=== PATIENT | male | born 2000 | race Caucasian/White ===

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

== ENCOUNTER 2021-06-02 17:30 | Emergency (ER) | payer OTHER ==
--- NOTE | 2021-06-02 18:03 | ED Physician Documentation ---
PD HPI CHEST PAIN - Stated complaint Stated Complaint: CP - Chief complaint Chief Complaint: Cardiac - History obtained from History obtained from: Patient - History of Present Illness Timing - onset: How many weeks ago (2) Timing - duration: Weeks (2) Pain level max: 5 Pain level now: 5 Quality: Sharp Radiation: No: Jaw, Neck, Back, Abdominal, Left upper extremity, Right upper extremity Associated symptoms: No: Shortness of air, Diaphoresis, Nausea, Vomiting, Feeling faint / dizzy, General Weakness, Palpitations, Cough Similar symptoms before: Has not had sx before Recently seen: Not recently seen - Additional information Additional information: Patient is a 20-year-old male who complains of sharp central chest pain for the past 2 weeks. He states it has been constant. Worse with moving, nothing makes it better. Has not taken anything for the pain. Nonradiating. Has not tried Motrin, Tylenol, Maalox, antacids, etc. No recent surgeries. No recent travel. No recent illnesses. No family history of young cardiac disease. Review of Systems Ten Systems: 10 systems reviewed and negative Constitutional: denies: Fever, Chills GI: denies: Nausea, Vomiting PD PAST MEDICAL HISTORY - Past Medical History Cardiovascular: None Respiratory: None Neuro: None Endocrine/Autoimmune: None GI: None : None HEENT: None Psych: None Musculoskeletal: None, Other Derm: None - Past Surgical History Past Surgical History: Yes General: Appendectomy - Present Medications Home Medications: Ambulatory Orders Medication Instructions Recorded Confirmed Ibuprofen [Motrin] 800 mg PO Q8H PRN #30 tablet 06/02/21 - Allergies Allergies/Adverse Reactions: Allergies Allergy/AdvReac Type Severity Reaction Status Date / Time No Known Drug Allergies Allergy Verified 06/02/21 17:42 - Social History Does the pt smoke?: No Smoking Status: Never smoker Does the pt drink ETOH?: No Does the pt have substance abuse?: No - Immunizations Immunizations are current?: Yes - POLST Patient has POLST: No PD ED PE NORMAL - Vitals Vital signs reviewed: Yes - General General: Alert and oriented X 3, No acute distress, Well developed/nourished - HEENT HEENT: PERRL, Moist mucous membranes - Neck Neck: Supple, no meningeal sign, No JVD - Cardiac Cardiac: RRR, No murmur, Strong equal pulses - Respiratory Respiratory: No respiratory distress, Clear bilaterally - Abdomen Abdomen: Soft, Non tender, Non distended - Derm Derm: Warm and dry - Extremities Extremities: No edema, No calf tenderness / cord - Neuro Neuro: Alert and oriented X 3 - Psych Psych: Normal mood, Normal affect - Free text exam Free text exam: Tender to palpation across the anterior chest wall. Tenderness over the costochondral cartilage. Reproduces his pain. No crepitus. Results - Vitals Vitals: Vital Signs - 24 hr 06/02/21 06/02/21 17:32 19:24 Temperature 36.3 C L 36.6 C Heart Rate 86 89 Respiratory 16 16 Rate Blood Pressure 142/85 H 134/74 H O2 Saturation 98 97 Oxygen O2 Source Room air - EKG (time done) 1749 Rate: Rate (enter#) (87) Rhythm: NSR [place]: Normal Intervals: Normal [place] QRS: Normal Ischemia: Normal ST segments - Rads (name of study) Chest x-ray Radiology: Prelim report reviewed, EMP read contemporaneously, See rad report (No acute abnormality) PD MEDICAL DECISION MAKING - ED course Complexity details: reviewed results, re-evaluated patient, considered differential (No ST elevation [place], no aortic dissection, no PE, no tension pneumothorax, no aortic aneurysm), d/w patient, d/w family ED course: Patient with what appears to be costochondritis. Given Motrin here. No change with GI cocktail. Pain is reproducible with palpation. No acute findings on EKG or chest x-ray. No evidence of pericarditis or myocarditis. No young cardiac history in the family. No risk factors for PE. Patient and family counseled regarding signs and symptoms for which I believe and urgent re- evaluation would be necessary. Patient with good understanding of and agreement to plan and is comfortable going home at this time This document was made in part using voice recognition software. While efforts are made to proofread this document, sound alike and grammatical errors may occur. Departure - Departure Disposition: 01 Home, Self Care Clinical Impression: Costochondritis Chest pain Qualifiers: Chest pain type: unspecified Qualified Code(s): R07.9 - Chest pain, unspecified Condition: Good Instructions: ED Chest Pain Costochondritis Follow-Up: your,doctor in 1 week [Other] Prescriptions: Ibuprofen [Motrin] 800 mg PO Q8H PRN #30 tablet PRN Reason: PAIN &/OR FEVER Comments: Take the motrin as prescribed. This should improve over the next week. Return if you worsen. Discharge Date/Time: 06/02/21 19:28
--- NOTE | 2021-06-02 18:33 | XRAY Report ---
PROCEDURE: Chest 2 View X-Ray INDICATIONS: chest pain TECHNIQUE: 2 view(s) of the chest. COMPARISON: CXR 09/01/2018. FINDINGS: Surgical changes and devices: None. Lungs and pleura: No pleural effusions or pneumothorax. Lungs are clear. Mediastinum: Mediastinal contours are normal. Heart size is normal. Bones and chest wall: No suspicious bony abnormalities. Soft tissues appear unremarkable. IMPRESSION: No acute cardiopulmonary abnormality. Reviewed by: Kalin Remy MD on 06/02/2021 6:32 PM PDT Approved by: Kalin Remy MD on 06/02/2021 6:32 PM PDT Station ID: [id number]
[2021-06-02] MEDS: MAG HYDROX/AL HYDROX/SIMETH 30 ML UDC PO STA (18:36)
[2021-06-02] MEDS: SUCRALFATE 1 GM/10 ML UDC PO STA (18:37)
[2021-06-02] MEDS: IBUPROFEN 800 MG TABLET PO STA (18:37)
[2021-06-02 19:25] VITALS: BP 134/74
== END 2021-06-02 19:28 | disposition home or self-care (01) ==
LOC: ED 17:30
DX: M94.0 Chondrocostal junction syndrome [Tietze] (principal); R07.9 Chest pain, unspecified
CPT/HCPCS: 71046; 93005; 99283; 99284; A9270

== ENCOUNTER 2023-10-24 15:45 | Emergency (ER) | payer OTHER ==
[2023-10-24 15:57] VITALS: O2SAT 98
[2023-10-24 16:55] LABS: B. PARAPERTUSSIS- RESP PCR PAN NOT DETECTED; B. PERTUSSIS- RESP PCR PANEL NOT DETECTED; C. PNEUMONIAE- RESP PCR PANEL NOT DETECTED; CORONAVIRUS 229E-RESP PCR NOT DETECTED; CORONAVIRUS HKU1-RESP PCR NOT DETECTED; CORONAVIRUS NL63-RESP PCR NOT DETECTED; CORONAVIRUS OC43-RESP PCR NOT DETECTED; HUMAN METAPNEUMOVIRUS NOT DETECTED; INFLUENZA A- RESP PCR PANEL NOT DETECTED; INFLUENZA B - RESP PCR PANEL NOT DETECTED; M. PNEUMONIAE- RESP PCR PANEL NOT DETECTED; PARAINFLUENZA VIRUS 1 NOT DETECTED; PARAINFLUENZA VIRUS 2 NOT DETECTED; PARAINFLUENZA VIRUS 3 NOT DETECTED; PARAINFLUENZA VIRUS 4 NOT DETECTED; RHINOVIRUS/ENTEROVIRUS NOT DETECTED; RSV- RESP PCR PANEL DETECTED; SARS-CoV-2 -RESP PCR PANEL NOT DETECTED
--- NOTE | 2023-10-24 17:21 | ED Physician Documentation ---
History of Present Illness - Stated complaint Stated Complaint: CHEST PX/COUGH/RT HAND SWOLLEN - Chief complaint Chief Complaint: Resp - History obtained from History obtained from: Patient - Additonal information Additional information: The pt comes to the ED with CC of cough, runny nose and sore throat for the past 5 days. No fevers or GI sx. No known sick contacts. He also c/o intermittent swelling of R thenar eminence. No injury. Has some soreness when it happens. No repetitive motion. No other complaints at this time. PD PAST MEDICAL HISTORY - Past Medical History Past Medical History: Yes Cardiovascular: None Respiratory: None Neuro: None Endocrine/Autoimmune: None GI: None : None HEENT: None Psych: None Musculoskeletal: None, Other Derm: None - Past Surgical History Past Surgical History: Yes General: Appendectomy Ortho: Other - Present Medications Home Medications: Ambulatory Orders Medication Instructions Recorded Confirmed Albuterol Sulf [Ventolin Hfa 1 - 2 puffs INH Q4HR PRN #1 each 10/27/23 Inhaler] Benzonatate [Tessalon] 200 mg PO TID PRN #30 cap 10/27/23 predniSONE [Deltasone] 40 mg PO DAILY #10 tablet 10/27/23 - Allergies Allergies/Adverse Reactions: Allergies Allergy/AdvReac Type Severity Reaction Status Date / Time No Known Drug Allergies Allergy Verified 10/27/23 11:45 - Social History Does the pt smoke?: No Smoking Status: Never smoker Does the pt drink ETOH?: No Does the pt have substance abuse?: No - Immunizations Immunizations are current?: Yes - POLST Patient has POLST: No PD ED PE NORMAL - Vitals Vital signs reviewed: Yes - General General: Alert and oriented X 3, No acute distress, Well developed/nourished - HEENT HEENT: Atraumatic, PERRL, EOMI, Moist mucous membranes, Other (Mild erythema of pharynx. Tonsils symmetrical, 2+, no exudates.) - Neck Neck: Supple, no meningeal sign, No adenopathy - Cardiac Cardiac: RRR, No murmur - Respiratory Respiratory: No respiratory distress, Clear bilaterally - Abdomen Abdomen: Soft, Non tender, Non distended - Derm Derm: Warm and dry - Extremities Extremities: No deformity, Other (No tenderness or edema of R thenar eminence.) - Neuro Neuro: Alert and oriented X 3 - Psych Psych: Normal mood, Normal affect Results - Vitals Vitals: Oxygen O2 Source Room air - Labs Labs: Laboratory Tests 10/24/23 16:00 Nasal Adenovirus (PCR) NOT DETECTED Nasal B. parapertussis DNA (PCR) NOT DETECTED Nasal Coronavir 229E PCR NOT DETECTED Nasal Coronavir HKU1 PCR NOT DETECTED Nasal Coronavir NL63 PCR NOT DETECTED Nasal Coronavir OC43 PCR NOT DETECTED Nasal Enterovir/Rhinovir PCR NOT DETECTED Nasal Influenza B PCR NOT DETECTED Nasal Influenza A PCR NOT DETECTED Nasal Parainfluen 1 PCR NOT DETECTED Nasal Parainfluen 2 PCR NOT DETECTED Nasal Parainfluen 3 PCR NOT DETECTED Nasal Parainfluen 4 PCR NOT DETECTED Nasal RSV (PCR) DETECTED A Nasal B.pertussis DNA PCR NOT DETECTED Nasal C.pneumoniae (PCR) NOT DETECTED Chirag Human Metapneumo PCR NOT DETECTED Nasal M.pneumoniae (PCR) NOT DETECTED Nasal SARS-CoV-2 (PCR) NOT DETECTED - Rads (name of study) CXR Relevant Findings:: Final report received, See rad report (neg) PD Medical Decision Making - ED course Complexity details: reviewed results, re-evaluated patient, considered differential, d/w patient ED course: CXR was neg with positive RSV on resp PCR. I discussed the findings with the pt. I have also discussed that I do not know why he is having intermittent thenar eminence swelling and pain. There are no findings on exam and pt is asymptomatic today. I have encouraged him to follow up with his PCP and avoid any activities that exacerbate the sx. Departure - Departure Disposition: 01 Home, Self Care Clinical Impression: RSV infection Condition: Stable Instructions: ED Viral Syndrome Comments: Your chest x-ray looks good. Your viral swab is positive for RSV, one of the many viruses that cause upper respiratory symptoms. In adults, this usually causes a bad cold but does not go beyond that most of the time. If you start feeling like you are drastically worsening with high fevers and drastically worsened shortness of breath, then please get reevaluated. Otherwise, you can expect to have upper respiratory symptoms for the next week or two, after which you should be feeling better. Please follow-up with your doctor as needed. Forms: PCP List Discharge Date/Time: 10/24/23 17:40
--- NOTE | 2023-10-24 17:32 | XRAY Report ---
PROCEDURE: Chest 1 View X-Ray INDICATIONS: cough TECHNIQUE: One view of the chest was acquired. COMPARISON: None. FINDINGS: Surgical changes and devices: None. Lungs and pleura: No pleural effusions or pneumothorax. Lungs are clear. Mediastinum: Mediastinal contours appear normal. Heart size is normal. Bones and chest wall: No suspicious bony lesions. Overlying soft tissues appear unremarkable. IMPRESSION: No acute cardiopulmonary process. Reviewed by: Juan Carlos Wagner on 10/24/2023 4:31 PM [facility] Approved by: Juan Carlos Wagner on 10/24/2023 4:31 PM [facility] Station ID: [id number]
[2023-10-24 17:43] VITALS: BP 133/87
== END 2023-10-24 17:40 | disposition home or self-care (01) ==
LOC: ED 15:45
DX: R05.9 Cough, unspecified (principal); R07.0 Pain in throat; R07.9 Chest pain, unspecified; B97.4 Respiratory syncytial virus as the cause of diseases classified elsewhere; Z20.822 Contact with and (suspected) exposure to COVID-19
CPT/HCPCS: 87633; 99283; 99284

== ENCOUNTER 2023-10-27 11:12 | Emergency (ER) | payer OTHER ==
--- NOTE | 2023-10-27 12:21 | XRAY Report ---
PROCEDURE: Chest 2 View X-Ray INDICATIONS: cough/SOA TECHNIQUE: 2 views of the chest were acquired. COMPARISON: 10/24/2023 FINDINGS: Surgical changes and devices: None. Lungs and pleura: No pleural effusions or pneumothorax. Lungs are clear. Mediastinum: Mediastinal contours appear normal. Heart size is normal. Bones and chest wall: No suspicious bony lesions. Overlying soft tissues appear unremarkable. IMPRESSION: No acute process. Reviewed by: Lydia Cervantes MD on 10/27/2023 12:20 PM PST Approved by: Lydia Cervantes MD on 10/27/2023 12:20 PM [facility] Station ID: [id number]
[2023-10-27] MEDS ORDERED: IPRATROPIUM/ALBUTEROL 3 ML NEB INH STA (13:23)
[2023-10-27] MEDS ORDERED: predniSONE 20 MG TABLET PO STA (13:23)
--- NOTE | 2023-10-27 13:43 | ED Physician Documentation ---
History of Present Illness - Stated complaint Stated Complaint: SOA,CHEST PX - Chief complaint Chief Complaint: Resp - History obtained from History obtained from: Patient - History of Present Illness Pain level max: 0 Pain level now: 0 - Additonal information Additional information: Patient is a 23-year-old male recently diagnosed with RSV. Has had continued chest tightness, coughing and pain with coughing. Has used inhalers in the past but does not have one currently. Feels like he is short of breath and feels like his chest is tight. Does not smoke or vape. No fevers. No chills. Review of Systems Constitutional: denies: Fever, Chills Throat: denies: Sore throat Cardiac: denies: Chest pain / pressure, Palpitations Respiratory: reports: Dyspnea, Cough, Wheezing GI: denies: Vomiting, Diarrhea Skin: denies: Rash Musculoskeletal: denies: Neck pain, Back pain Neurologic: denies: Headache PD PAST MEDICAL HISTORY - Past Medical History Cardiovascular: None Respiratory: None Neuro: None Endocrine/Autoimmune: None GI: None : None HEENT: None Psych: None Musculoskeletal: None, Other Derm: None - Past Surgical History Past Surgical History: Yes General: Appendectomy Ortho: Other - Present Medications Home Medications: Ambulatory Orders Medication Instructions Recorded Confirmed Albuterol Sulf [Ventolin Hfa 1 - 2 puffs INH Q4HR PRN #1 each 10/27/23 Inhaler] Benzonatate [Tessalon] 200 mg PO TID PRN #30 cap 10/27/23 predniSONE [Deltasone] 40 mg PO DAILY #10 tablet 10/27/23 - Allergies Allergies/Adverse Reactions: Allergies Allergy/AdvReac Type Severity Reaction Status Date / Time No Known Drug Allergies Allergy Verified 10/27/23 11:45 - Social History Does the pt smoke?: No Smoking Status: Never smoker Does the pt drink ETOH?: No Does the pt have substance abuse?: No - Immunizations Immunizations are current?: Yes - POLST Patient has POLST: No PD ED PE NORMAL - Vitals Vital signs reviewed: Yes - General General: Alert and oriented X 3, No acute distress - HEENT HEENT: PERRL, Moist mucous membranes, Pharynx benign - Neck Neck: Supple, no meningeal sign - Cardiac Cardiac: RRR, Strong equal pulses - Respiratory Respiratory: No respiratory distress, Other (Diminished breath sounds bilaterally) - Derm Derm: Warm and dry - Neuro Neuro: Alert and oriented X 3 - Psych Psych: Normal mood, Normal affect Results - Vitals Vitals: Vital Signs - 24 hr 10/27/23 10/27/23 10/27/23 11:45 13:37 14:12 Temperature 36.2 C L 36.4 C L Heart Rate 65 64 75 Respiratory 20 18 18 Rate Blood Pressure 137/86 H 131/80 H O2 Saturation 99 99 Oxygen O2 Source Room air - Rads (name of study) Chest x-ray Relevant Findings:: Final report received, See rad report PD Medical Decision Making - ED course Complexity details: reviewed results, re-evaluated patient, considered differential, d/w patient ED course: 23-year-old male presents to the emergency department with positive RSV. Has chest tightness and diminished breath sounds. Given prednisone and DuoNeb treatment. Breathing improved. Will place on cough medication, steroids and albuterol for home. No evidence of pneumonia on chest x-ray. Patient is well- appearing, nontoxic. Afebrile. No hypoxia. No respiratory distress. Patient counseled regarding signs and symptoms for which I believe and urgent re- evaluation would be necessary. Patient with good understanding of and agreement to plan and is comfortable going home at this time This document was made in part using voice recognition software. While efforts are made to proofread this document, sound alike and grammatical errors may occur. Departure - Departure Disposition: 01 Home, Self Care Clinical Impression: RSV infection Condition: Good Instructions: ED Viral Syndrome Follow-Up: your,doctor in 1 week [Other] Prescriptions: Albuterol Sulf [Ventolin Hfa Inhaler] 1 - 2 puffs INH Q4HR PRN #1 each PRN Reason: Shortness Of Air/Wheezing predniSONE [Deltasone] 40 mg PO DAILY #10 tablet Benzonatate [Tessalon] 200 mg PO TID PRN #30 cap PRN Reason: Cough Comments: Your prescriptions were sent to [facility] in [place]. We have sent steroids to help with the inflammation, medicine to help with your cough and albuterol to help open your lungs and decrease your difficulty breathing and chest tightness. You can use Motrin or Tylenol as needed for pain. Please return if you worsen. You have tested positive for RSV 2 days ago, this is a viral illness, antibiotics do not help and it will resolve on its own. Your chest x- ray does not show any acute abnormalities today. Forms: PCP List, Activity restrictions
[2023-10-27 14:46] VITALS: BP 131/87; O2SAT 100
== END 2023-10-27 14:38 | disposition home or self-care (01) ==
LOC: ED 11:12
DX: R07.89 Other chest pain (principal); R05.9 Cough, unspecified; R06.00 Dyspnea, unspecified; B97.4 Respiratory syncytial virus as the cause of diseases classified elsewhere
CPT/HCPCS: 71046; 94640; 99283; J7512